=== PATIENT | female | born 1965 | race Caucasian/White ===

== ENCOUNTER 2017-11-09 11:35 | Emergency (ER) | END 2017-11-09 21:00 ==

== ENCOUNTER 2017-11-21 22:35 | Emergency (ER) | END 2017-11-23 07:19 | disposition home or self-care (01) ==

== ENCOUNTER 2019-04-19 08:12 | Emergency (ER) | payer SELFPAY ==
[~2019-04-19] VITALS: Ht 154.9 cm; Wt 63.3 kg
[2019-04-19 08:26] VITALS: Ht 154.9 cm; Wt 63.3 kg
[2019-04-19] MEDS ORDERED: KETOROLAC 30 MG INJ IM STA (08:32)
--- NOTE | 2019-04-19 08:35 | ERD ---
ER Documentation Chief Complaint Chief Complaint c/o headache and back pain from fall 3 days ago. reports head flevignesh. [id number] HPI This is a 53-year-old woman complaining of low back pain similar to multiple previous episode. The pain is nonradiating and nonexertional, she denies dysuria, no fevers or chills, no weight loss, no chest pain or shortness of breath. Patient does have a history of psychiatric illness and also ran out of her psychiatric medications and would like a refill. She denies suicidal homicidal ideation. ROS All systems reviewed and are negative except as per history of present illness. Medications Home Meds Active Scripts Hydrochlorothiazide* (Hydrochlorothiazide*) 25 Mg Tab, 25 MG PO DAILY, #30 TAB Prov:JENNIFFER PEREZ MD 04/19/19 Ibuprofen* (Motrin*) 600 Mg Tab, 600 MG PO Q8 PRN for PAIN AND/OR INFLAMMATION, #30 TAB Prov:JENNIFFER PEREZ MD 04/19/19 Olanzapine* (Zyprexa*) 10 Mg Tablet, 10 MG PO DAILY, #30 TAB Prov:JENNIFFER PEREZ MD 04/19/19 Escitalopram Oxalate* (Lexapro*) 10 Mg Tablet, 10 MG PO DAILY, #30 TAB Prov:JENNIFFER PEREZ MD 04/19/19 Allergies Allergies: Coded Allergies: No Known Allergy (Unverified , 04/19/19) PMhx/Soc Chronic pain syndrome, psychiatric illness, hypertension Hx Psychiatric Problems: Yes (bipolar disorder) Hx Tobacco Use: No FmHx Family History: No diabetes Physical Exam Vitals Vital Signs Date Temp Pulse Resp B/P (MAP) Pulse Ox O2 O2 Flow FiO2 Time Delivery Rate 04/19/19 72 16 169/103 99 Room Air 11:00 (125) 04/19/19 97.9 81 20 160/105 98 08:26 (123) Physical Exam GENERAL: Well-developed, well-nourished, well-hydrated, in no apparent distress, looks nontoxic in appearance CARDIAC: Regular rate and rhythm, no murmurs rubs or gallops LUNGS: Clear bilaterally no wheezing crackles or stridor ABDOMEN: Soft nontender, no guarding, no rigidity, no rebound, no psoas sign no obturator sign. SKIN: Warm and dry to touch, no abrasions, contusions, or hematomas, no lacerations, no ecchymosis, no target lesions, and without ulcers EXTREMITIES: No clubbing cyanosis or edema, calves are bilaterally symmetrical, no Homans sign, no popliteal cord sign. Distal pulses equal and bilateral PSYCH: Normal affect without agitation or irritability Results 24 hrs Laboratory Tests Test 04/19/19 08:44 Urine Color YELLOW Urine Clarity CLEAR Urine pH 6.0 Urine Specific [place] 1.011 Urine Ketones NEGATIVE mg/dL Urine Nitrite NEGATIVE mg/dL Urine Bilirubin NEGATIVE mg/dL Urine Urobilinogen NEGATIVE mg/dL Urine Leukocyte Esterase NEGATIVE Lasha/ul Urine Microscopic RBC 6 /HPF Urine Microscopic WBC 2 /HPF Urine Bacteria FEW /HPF Urine Hemoglobin 1+ mg/dL Urine Glucose NEGATIVE mg/dL Urine Total Protein NEGATIVE mg/dl Current Medications Medications Dose Sig/Gustavo Start Time Status Last (Trade) Ordered Route PRN Stop Time Admin Dose Reason Admin Ketorolac 30 mg ONCE STAT 04/19/19 DC 04/19/19 Tromethamine IM 08:32 08:47 (Toradol) 04/19/19 08:33 Clonidine 0.1 mg ONCE ONCE 04/19/19 DC 04/19/19 (Catapres) PO 09:30 09:31 04/19/19 09:31 Procedures/MDM For complaints of back pain administered Toradol 30 mg IM x1, and for hypertension patient received clonidine 0.1 mg p.o. Urinalysis was negative for infection. Patient has no CVA tenderness to palpation and has no gross hematuria. Her vital signs are normal and blood pressure has improved after clonidine although she remains mildly hypertensive. I did give her prescriptions for antihypertensive medications and recommended follow-up with PMD. Patient looks well and will be discharged, also with prescription antipsychotics.. Differential diagnoses considered, included but not limited to acute coronary syndrome, pulmonary embolism, aortic dissection, abdominal aortic aneurysm, sepsis, stroke, meningitis, encephalitis, pneumonia, appendicitis, cholecyst itis, bowel obstruction, pyelonephritis, nephrolithiasis, cystitis, as well as metabolic, hematologic, and electrolyte abnormalities. As well as abscess, cellulitis, fractures, and dislocations. Patient feels much better at this time, and vital signs are normal, symptoms have improved. I did give strict instructions to return to the ED if symptoms continue or worsen, patient will otherwise follow-up with primary care physician. Patient understood instructions and agreed to plan. Disclaimer: Inadvertent spelling and grammatical errors are likely due to EHR/dictation software use and do not reflect on the overall quality of patient care. Also, please note that the electronic time recorded on this note does not necessarily reflect the actual time of the patient encounter. Departure Diagnosis: Primary Impression: Back pain Back pain location: low back pain Chronicity: chronic Back pain lateralit y: bilateral Sciatica presence: without sciatica Qualified Codes: M54.5 - Low back pain; G89.29 - Other chronic pain Additional Impressions: Medication refill Hypertension Hypertension type: essential hypertension Qualified Codes: I10 - Essential (primary) hypertension Condition: Good JENNIFFER PEREZ MD Apr 19, 2019 08:35
[2019-04-19] MEDS ORDERED: OLAN10TA7 PO (08:59)
[2019-04-19] MEDS ORDERED: IBUP-1542 PO (08:59)
[2019-04-19] MEDS ORDERED: ESCI10TA PO (08:59)
[2019-04-19] MEDS ORDERED: HYDR25TA6 PO (10:46)
[2019-04-19 11:00] VITALS: BP 169/103; PULSE 72; RESP 16
== END 2019-04-19 11:00 | disposition home or self-care (01) ==
LOC: E/R 08:12
DX: M54.5 Low back pain (principal); I10 Essential (primary) hypertension; Z76.0 Encounter for issue of repeat prescription
CPT/HCPCS: 81001; 96372; 99284; J1885